=== PATIENT | male | born 2000 | race Caucasian/White ===

== ENCOUNTER 2021-04-08 09:15 | Day surgery (SDC) | payer OTHER ==
[~2021-04-08] VITALS: Ht 170.2 cm; Wt 77.1 kg
[2021-04-08] MEDS ORDERED: MIDAZOLAM 5 MG/5 ML VIAL ONE (10:38)
[2021-04-08] MEDS ORDERED: fentaNYL citrate 0.05 MG/ML VIAL ONE (10:38)
[2021-04-08] MEDS ORDERED: MIDAZOLAM 2 MG/2 ML VIAL IVP ONE (11:05)
== END 2021-04-08 12:20 | disposition home or self-care (01) ==
LOC: MDS 09:15 → MMU 09:16 → MDS 12:20
PROVIDERS: ATTEND Internal Medicine Gastroenterology
DX: R10.13 Epigastric pain (principal); R14.0 Abdominal distension (gaseous); Z79.899 Other long term (current) drug therapy
CPT/HCPCS: 36415; 43239; 86677; J2250; J3010

== ENCOUNTER 2023-06-01 18:36 | Emergency (ER) | payer OTHER ==
[~2023-06-01] VITALS: Ht 172.7 cm; Wt 79.9 kg
[2023-06-01 18:57] VITALS: BP 132/74; PULSE 83; RESP 18; TEMP 98.9; O2SAT 99
[2023-06-01] MEDS ORDERED: IBUP-2213 PO (20:30)
[2023-06-01] MEDS ORDERED: CIPR500T4 PO (20:30)
[2023-06-01] MEDS ORDERED: ONDA8TAB87 PO (20:30)
[2023-06-01] MEDS ORDERED: ALUMINUM HYD/MAG/SIMETHICONE 30 ML UDC ONE (20:33)
[2023-06-01] MEDS ORDERED: DICYCLOMINE HCL LIQUID 10 MG/5 ML UDC ONE (20:33)
[2023-06-01] MEDS: ONDANSETRON 4 MG ODT PO ONE (20:43)
[2023-06-01] MEDS: DICYCLOMINE HCL LIQUID 20 MG, ALUMINUM HYD/MAG/SIMETHICONE 30 ML, LIDOCAINE VISCOUS 2% ... PO ONE (20:49)
[2023-06-01 21:00] VITALS: BP 132/74; PULSE 83; RESP 18; TEMP 98.9; O2SAT 99
== END 2023-06-01 21:00 | disposition home or self-care (01) ==
LOC: MED 18:36
DX: R10.13 Epigastric pain (principal); R11.2 Nausea with vomiting, unspecified; R19.7 Diarrhea, unspecified; Z79.899 Other long term (current) drug therapy
CPT/HCPCS: 99283; Q0162